=== PATIENT | female | born 1990 | race Caucasian/White ===

== ENCOUNTER 2020-01-14 03:41 | Inpatient (IN) | payer OTHER ==
[2020-01-14] MEDS ORDERED: DEXTROSE 5%-LACTATED RINGERS 500 ML IV ONE (04:00)
[2020-01-14] MEDS ORDERED: DEXTROSE 5%-LACTATED RINGERS 1,000 ML IV SCH (05:00)
[2020-01-14 05:20] VITALS: BMI 28.1
[2020-01-14] MEDS ORDERED: BUTORPHANOL TARTRATE 1 MG/ML VIAL IVPB ONE (05:26)
[2020-01-14] MEDS ORDERED: PROMETHAZINE HCL 25 MG/1 ML VIAL IVPUSH ONE (05:26)
--- NOTE | 2020-01-14 05:32 | HP ---
Past Medical History - Primary Care Physician PCP:: Arielle Major - Admission Chief Complaint: spontaneous rupture of membranes. 40.5 week History of Present Illness: 29 yo G1 EDC EGA 40.5 week for spontaneous rupture of membranes no vaginal bleeding No CH no BP problem History Source: Patient - Past Medical History ...: 1 ...Para: 0 ...Term: 0 ...: 0 ...Spon : 0 ...Induced : 0 ...Multiple Gestation: 0 ... Weeks Gestation by Dates: 40.5 ...EDC by Dates: 01/09/20 - Past Surgical History Past Surgical History: Yes: None Hx Myomectomy: No Hx Transabdominal Cerclage: No - Smoking History Smoking history: Never smoked Have you smoked in the past 12 months: No - Alcohol/Substance Use Hx Alcohol Use: No History of Substance Use: reports: None - Social History Usual Living Arrangement: Yes: With Spouse History of Recent Travel: No Home Medications - Allergies Allergies/Adverse Reactions: Allergies Allergy/AdvReac Type Severity Reaction Status Date / Time No Known Drug Allergies Allergy Verified 01/14/20 05:35 - Home Medications Home Medications: Ambulatory Orders Ferrous Sulfate 325 mg PO TID 01/13/20 Review of Systems - Review of Systems Constitutional: reports: No Symptoms Eyes: reports: No Symptoms HENT: reports: No Symptoms Neck: reports: No Symptoms Cardiovascular: reports: No Symptoms Respiratory: reports: No Symptoms Gastrointestinal: reports: Abdominal Pain Genitourinary: reports: No Symptoms Breasts: reports: No Symptoms Reported Musculoskeletal: reports: No Symptoms Integumentary: reports: No Symptoms Neurological: reports: No Symptoms Endocrine: reports: No Symptoms Hematology/Lymphatic: reports: No Symptoms Psychiatric: reports: No Symptoms Physical Exam - Maternity Vital Signs: Vital Signs Temperature 98.1 F 01/14/20 05:00 Pulse Rate 80 01/14/20 05:00 Respiratory Rate 20 01/14/20 05:00 Blood Pressure 114/67 01/14/20 05:00 O2 Sat by Pulse Oximetry (%) Hemorrhage Risk Assessment - Risk Factors Risk Score: 0 Risk Level: Low Risk Problem List - Problems (1) Spontaneous rupture of amniotic membranes Problems reviewed: Yes Code(s): KTQ7801 - (2) 40 weeks gestation of Problems reviewed: Yes Code(s): Z3A.40 - 40 WEEKS GESTATION OF Assessment/Plan srom 40 weeks Cat 1 Plan admit
[2020-01-14] MEDS: ELECTROLYTE-148 SOLN 1,000 ML IV SCH ×3 (06:30→11:57)
[2020-01-14] MEDS ORDERED: FENTANYL/BUPIVACAINE/NS/PF - PCEA - 50 ML DISP.SYRIN EP ONE ×2 (06:36→11:38)
[2020-01-14] MEDS ORDERED: NALOXONE HCL 0.4 MG/ML VIAL IVPUSH PRN (06:48)
[2020-01-14] MEDS: FENTANYL/BUPIVACAINE/NS/PF - PCEA - 50 ML DISP.SYRIN EP SCH ×2 (07:00→11:58)
--- NOTE | 2020-01-14 07:21 | PN ---
Ante-Partal Exam - Subjective Subjective: Pt comfortable after epidural Vital Signs: Vital Signs Temperature 98.5 F 01/14/20 06:00 Pulse Rate 87 01/14/20 06:00 Respiratory Rate 20 01/14/20 06:00 Blood Pressure 120/76 01/14/20 06:00 O2 Sat by Pulse Oximetry (%) Bleeding: No Headache: No Visual changes: No Right upper quadrant pain: No - Contractions Contractions: Yes Regularity: Regular Intensity: Mild/Mod Monitor Mode: External - Exam during Labor Variability: Moderate Heart Rate Location: [facility] Category: I Monitor Accelerations: Present Monitor Decelerations: None Exam: Vaginal Dilatation (cm): 2 Effacement (%): 80 Amniotic Membrane Status: Ruptured Amniotic Fluid: Clear Presentation: Vertex Station: 0 - Intrapartum Hemorrhage Risk High Risk Factors: None Risk Score: 0 Risk Level: Low Risk - Assessment/Plan Assessment/Plan: Cat 1 SROM active labor stiff cervix - was able to open to 2 cm last exam Plan COntinue management epidural
[2020-01-14] MEDS ORDERED: OXYTOCIN 30 UNITS in 0.9% NS 30 UNIT/500 ML INFUS.BAG IVPB ONE (09:19)
[2020-01-14] MEDS ORDERED: OXYTOCIN 30 UNITS in 0.9% NS 30 UNIT/500 ML INFUS.BAG IVPB SCH (09:30)
[2020-01-14 12:12] LABS: POC NITRAZINE POS
--- NOTE | 2020-01-14 13:36 | PN ---
Ante-Partal Exam - Subjective Subjective: Pt crying and concerned about needing a CS Vital Signs: Vital Signs Temperature 98.2 F 01/14/20 13:00 Pulse Rate 105 H 01/14/20 12:45 Respiratory Rate 01/14/20 12:45 Blood Pressure 124/69 01/14/20 12:45 O2 Sat by Pulse Oximetry (%) 99 01/14/20 12:45 Bleeding: No Headache: No Visual changes: No Right upper quadrant pain: No - Contractions Contractions: Yes Regularity: Regular - Exam during Labor Category: I Monitor Accelerations: Present Monitor Decelerations: None Exam: Vaginal Dilatation (cm): 2 Effacement (%): 70 Amniotic Membrane Status: Ruptured Presentation: Vertex Station: +1 - Intrapartum Hemorrhage Risk Risk Score: 0 Risk Level: Low Risk - Assessment/Plan Assessment/Plan: Failure to dilate - pt has not changed in 12 hours/explained to pt mother and about possibility of infection and distress if no dilation pt and agree to CS SROM Cat 1 Primigravida Plan low transverse Section
[2020-01-14] MEDS ORDERED: METHYLERGONOVINE MALEATE 0.2 MG/1 ML AMP IM PRN (13:38)
[2020-01-14] MEDS ORDERED: OXYTOCIN 20 UNITS in 0.9% NS 20 UNIT/1,000 ML INFUS.BAG IV ONE ×2 (13:41→13:48)
--- NOTE | 2020-01-14 13:42 | OP ---
Operative Note - Note: Operative Date: 01/14/20 Pre-Operative Diagnosis: Failure to progress/dilate. 40+ weeks Operation: Primary low transverse Section Findings: Live female infant nuchal cord x 1 Post-Operative Diagnosis: Same as Pre-op Surgeon: Arielle Major Psychologist Research Assistant: Benedicto Heath Anesthesia: Epidural Estimated Blood Loss (mls): 600 Operative Report Dictated: Yes
[2020-01-14] MEDS ORDERED: PHENYLEPHRINE HCL 10 MG/1 ML SINGLE DOSE VIAL ONE (13:52)
[2020-01-14] MEDS ORDERED: ceFAZolin SODIUM 1 GM VIAL ONE (13:52)
[2020-01-14] MEDS ORDERED: SODIUM CHLORIDE 0.9% P/F 10 ML VIAL IJ ONE (13:53)
[2020-01-14] MEDS ORDERED: KETOROLAC TROMETHAMINE 30 MG/1 ML VIAL ONE (14:31)
[2020-01-14] MEDS ORDERED: BETAMET ACET/BETAMET NA PH 30 MG/5 ML VIAL ONE (14:31)
--- NOTE | 2020-01-14 14:33 | PN ---
Progress Note (short form) - Note Progress Note: I assisted Dr. Major at c/section for the entirety of the case.
--- NOTE | 2020-01-14 14:43 | PN ---
Delivery - Delivery Section: Primary, Low Flap Transverse Type of Anesthesia: Epidural EBL (cc): 500 Delivery, Single - Stages of Labor Placenta: Yes: Spontaneous - Condition of Infant Advertising Rep/Supervisor [place] Present: Yes Position: OT - Feeding Plan Initial Plan: Elected not to breastfeed exclusively throughout hospitalization
[2020-01-14] MEDS ORDERED: ONDANSETRON 4 MG/2 ML VIAL IVPUSH PRN (14:55)
[2020-01-14] MEDS: OXYTOCIN 20 UNITS in 0.9% NS 20 UNIT/1,000 ML INFUS.BAG IV SCH (16:09)
[2020-01-14] MEDS ORDERED: IBUPROFEN 800 MG/8 ML IJ IVPB PRN (19:57)
--- NOTE | 2020-01-14 19:59 | OP ---
DATE OF OPERATION: 01/14/2020 PREOPERATIVE DIAGNOSIS: Failure to progress and dilate, an intrauterine at 49 weeks. OPERATION: Low-transverse primary section. POSTOPERATIVE DIAGNOSIS: Failure to progress and dilate, an intrauterine at 49 weeks, live female infant, nuchal cord x1. SURGEON: Arielle Major MD FOAM CHARGER: Benedicto Heath MD FINDINGS: Live female delivered in ROT position, nuchal cord x1. PROCEDURE: The patient was taken to the operating room, placed in supine position, prepped and draped in the usual sterile fashion. Timeout was performed in accordance with hospital regulation. A Pfannenstiel skin incision was made with a scalpel. Cautery was then used to go through the layers of abdominal wall to the level of the fascia. Fascia was cut in the midline and cautery was then used to open the fascia in smiling fashion. Kochers then used to bluntly and sharply dissect the rectus muscle of the fascia, muscles split in the midline. Peritoneal cavity was then entered and carried up and downward. Bladder retractors then placed. Vesicouterine reflection was then entered. Bladder was bluntly dissected out of the operative field. Scalpel was then used to make a low transverse uterine incision. The incision was carried upward using bandage scissors. A live female infant was delivered in ROT position, nuchal cord x1 was reduced. Shoulders were delivered without difficulty. Cord was clamped and cut, cord blood obtained. Placenta was manually extracted from the uterus. Uterus exteriorized and cleaned with clean lap pads. Uterine incision then closed using 0 Biosyn suture, first layer in continuous interlocking, second layer imbricating the first layer. Hemostasis was achieved. Uterus, tubes and ovaries noted to be normal. The uterine cavity was then interiorized. Abdominal cavity cleaned with clean lap pads. Peritoneum closed using 0 Biosyn suture. Muscles approximated in midline using 0 Biosyn suture. Fascia was then closed using 0 Vicryl suture in 2 parts. Skin was then closed using 3-0 Vicryl in subcuticular fashion. Wound was washed and dressed. Patient tolerated procedure well. Estimated blood loss 500 mL. ARIELLE MAJOR M.D. [id number]
[2020-01-15] MEDS: OXYTOCIN 20 UNITS in 0.9% NS 20 UNIT/1,000 ML INFUS.BAG IV SCH (02:35)
--- NOTE | 2020-01-15 08:03 | PN ---
Progress Note (SOAP) - Subjective Chief Complaint: Pt doing well - Current Medications Current Medications: Active Medications Acetaminophen (Tylenol -) 650 mg PO Q4H PRN PRN Reason: PAIN LEVEL 4 - 6 Bisacodyl (Dulcolax Suppository -) 10 mg RC PRN PRN PRN Reason: CONSTIPATION Diphenhydramine HCl (Benadryl Injection -) 25 mg IVPUSH Q4H PRN PRN Reason: Pruritis Oxytocin/Sodium Chloride (Normal Saline+20 Units Oxytocin -) 20 unit in 1,000 mls @ 125 mls/hr IV ASDIR GARY Last Admin: 01/15/20 02:35 Dose: 125 mls/hr Ibuprofen (Motrin -) 600 mg PO Q4H PRN PRN Reason: PAIN LEVEL 1 - 3 Ibuprofen (Motrin -) 600 mg PO Q4H PRN PRN Reason: PAIN LEVEL 6-10 Ibuprofen (Caldolor Injection -) 800 mg IVPB Q8H PRN PRN Reason: PAIN SCALE 4-6 Last Admin: 01/14/20 23:15 Dose: 800 mg Methylergonovine Maleate (Methergine Injection -) 0.2 mg IM Q4H PRN PRN Reason: Excessive Bleeding (L&D) Naloxone HCl (Narcan -) 0.4 mg IVPUSH PRN PRN PRN Reason: Sedation Ondansetron HCl (Zofran Injection) 4 mg IVPUSH Q4H PRN PRN Reason: NAUSEA Simethicone (Mylicon -) 80 mg PO Q4H PRN PRN Reason: GAS - Objective Vital Signs: Vital Signs Temperature 97.9 F 01/15/20 05:44 Pulse Rate 75 01/15/20 05:44 Respiratory Rate 18 01/15/20 06:00 Blood Pressure 97/47 L 01/15/20 05:44 O2 Sat by Pulse Oximetry (%) 99 01/14/20 16:00 Constitutional: Yes: Well Nourished, No Distress Gastrointestinal: Yes: WNL, Soft ....Post : Yes: Uterus firm, Uterus non-tender Breast(s): Yes: WNL Musculoskeletal: Yes: WNL Extremities: Yes: WNL Edema: No Wound/Incision: Yes: Steri Strips, Open to air Neurological: Yes: WNL, Alert, Oriented Problem List - Problems (1) Spontaneous rupture of amniotic membranes Code(s): LVN7129 - (2) 40 weeks gestation of Code(s): Z3A.40 - 40 WEEKS GESTATION OF (3) Delivery by section Problems reviewed: Yes Code(s): HAC2167 - Assessment/Plan POD 1 SP CS Stable Plan Continue present management
[2020-01-15 08:22] LABS: BASO % 0.4 % (0-2.0); EOS % 0.2 % (0-4.5); HEMATOCRIT 28.3 % (32.4-45.2); HEMOGLOBIN 9.5 GM/dL (10.7-15.3); LYMPH % 16.8 % (8-40); MCH 30.2 pg (25.7-33.7); MCHC 33.6 g/dl (32.0-36.0); MEAN CELL VOLUME 89.7 fl (80-96); MEAN PLT VOLUME 9.1 fl (7.5-11.1); MONO % 10.5 % (3.8-10.2); NEUT % 72.1 % (42.8-82.8); PLATELET COUNT 243 K/MM3 (134-434); RBC 3.16 M/mm3 (3.60-5.2); RDW 13.4 % (11.6-15.6); WHITE BLOOD COUNT 12.7 K/mm3 (4.0-10.0)
--- NOTE | 2020-01-15 08:30 | PN ---
Progress Note, Physician Chief Complaint: s/p c section post op day one History of Present Illness: under spinal anesthesia with duramorph for pain control - Current Medication List Current Medications: Active Medications Acetaminophen (Tylenol -) 650 mg PO Q4H PRN PRN Reason: PAIN LEVEL 4 - 6 Bisacodyl (Dulcolax Suppository -) 10 mg RC PRN PRN PRN Reason: CONSTIPATION Diphenhydramine HCl (Benadryl Injection -) 25 mg IVPUSH Q4H PRN PRN Reason: Pruritis Oxytocin/Sodium Chloride (Normal Saline+20 Units Oxytocin -) 20 unit in 1,000 mls @ 125 mls/hr IV ASDIR GARY Last Admin: 01/15/20 02:35 Dose: 125 mls/hr Ibuprofen (Motrin -) 600 mg PO Q4H PRN PRN Reason: PAIN LEVEL 1 - 3 Ibuprofen (Motrin -) 600 mg PO Q4H PRN PRN Reason: PAIN LEVEL 6-10 Ibuprofen (Caldolor Injection -) 800 mg IVPB Q8H PRN PRN Reason: PAIN SCALE 4-6 Last Admin: 01/14/20 23:15 Dose: 800 mg Methylergonovine Maleate (Methergine Injection -) 0.2 mg IM Q4H PRN PRN Reason: Excessive Bleeding (L&D) Naloxone HCl (Narcan -) 0.4 mg IVPUSH PRN PRN PRN Reason: Sedation Ondansetron HCl (Zofran Injection) 4 mg IVPUSH Q4H PRN PRN Reason: NAUSEA Simethicone (Mylicon -) 80 mg PO Q4H PRN PRN Reason: GAS - Objective Vital Signs: Vital Signs Temperature 97.9 F 01/15/20 05:44 Pulse Rate 75 01/15/20 05:44 Respiratory Rate 18 01/15/20 06:00 Blood Pressure 97/47 L 01/15/20 05:44 O2 Sat by Pulse Oximetry (%) 99 01/14/20 16:00 Constitutional: Yes: Well Nourished Cardiovascular: Yes: WNL Respiratory: Yes: WNL Gastrointestinal: Yes: WNL Labs: CBC, BMP 01/15/20 07:15 Assessment/Plan doing well, no nausea or vomiting overnight, pain controlled, no anesthetic complications. Dept of anesthesia will sign off care at this time
[2020-01-15] MEDS: SIMETHICONE 80 MG TAB.CHEW (FP) PO PRN ×3 (09:04→20:23)
[2020-01-15] MEDS: IBUPROFEN 600 MG TABLET (FP) PO PRN ×3 (09:04→20:23)
[2020-01-15] MEDS: ACETAMINOPHEN 325 MG TABLET (FP) PO PRN ×3 (09:04→20:24)
[2020-01-15] MEDS ORDERED: BISACODYL 10 MG SUPP.RECT RC PRN (13:39)
[2020-01-16] MEDS: ACETAMINOPHEN 325 MG TABLET (FP) PO PRN ×4 (05:10→22:01)
[2020-01-16] MEDS: IBUPROFEN 600 MG TABLET (FP) PO PRN ×4 (05:10→22:01)
[2020-01-16] MEDS: SIMETHICONE 80 MG TAB.CHEW (FP) PO PRN ×4 (05:10→22:00)
--- NOTE | 2020-01-17 07:07 | DS ---
Physical Exam-PROJECTS MANAGER Vital Signs: Vital Signs Temperature 97.6 F 01/16/20 21:15 Pulse Rate 88 01/16/20 21:15 Respiratory Rate 20 01/16/20 21:15 Blood Pressure 117/61 01/16/20 21:15 O2 Sat by Pulse Oximetry (%) 99 01/14/20 16:00 Constitutional: Yes: Well Nourished, No Distress ....Post : Yes: Uterus firm, Uterus non-tender Breast(s): Yes: WNL Musculoskeletal: Yes: WNL Extremities: Yes: WNL Edema: No Neurological: Yes: WNL, Alert, Oriented Labs: CBC, BMP 01/15/20 07:15 Delivery - Delivery Section: Primary, Low Flap Transverse Type of Anesthesia: Epidural Episiotomy/Laceration: None EBL (cc): 500 Delivery, Single - Stages of Labor Date 1st Stage Initiatied: 01/14/20 Time 1st Stage Initiated: 02:00 Date of Delivery: 01/14/20 Time of Delivery: 14:13 Time Placenta Delivered: 14:20 Placenta: Yes: Spontaneous - Condition of Home Restoration Service Supervisor/Podiatry Doctor Present: Yes Name: Iwona Rdz Gender: Female Weight: 7 lb 5 oz Position: OT Total Hours ROM (Hrs/Mins): 18/20 - 1 Minute Total Score: 9 5 Minutes Total Score: 9 - Boelus Feeding Plan Initial Plan: Elected not to breastfeed exclusively throughout hospitalization Discharge Summary Problems reviewed: Yes Reason For Visit: LABOR ADMIT Current Active Problems Delivery by section (Acute) Spontaneous rupture of amniotic membranes (Acute) Procedures: Principal: Primary Section Hospital Course: unremarkable Condition: Good - Instructions Diet, Activity, Other Instructions: Physical activity Resume your normal everyday activity as tolerated no heavy lifting or exercise until seen by your surgeon. You may walk unlimited conrado of and climb stairs. You may resume driving the car when you feel safe and comfortable behind the wheel. No sexual activity as instructed. Wound care If you have a bandage, leave it on, and keep dry for 48-72 hours. After that time discard the outer bandage. If they are tapes on the skin under the out of bandage leave them in place. They will peel off in the next 7 to 10 days. Do Not Peel them off. You may shower the day after surgery. If there are tapes present on the skin, you may shower over them. Diet There are no dietary restrictions. Eat healthy, high-fiber foods. Drink 6 to 8 glasses of liquid each day. This will assist in keeping your bowels are regular. Pain management You may take Tylenol or acetaminophen or Ibuprofen (for example, Motrin, Advil etc.) from my pain prescription medication is ordered should be taken as prescribed for moderate to severe pain. Call MD for any of the following: Severe pain not relieved by medication Fever of 101 or higher Excessive bleeding or drainage on dressing Inability to urinate Referrals: Arielle Major MD [Staff Physician] - Disposition: HOME - Home Medications Comprehensive Discharge Medication List: Ambulatory Orders Ferrous Sulfate 325 mg PO TID 01/13/20 Ferrous Sulfate [Feosol] 325 mg PO BID #60 tablet 01/16/20 Ibuprofen [Motrin -] 600 mg PO QID #28 tablet 01/16/20
[2020-01-17] MEDS: ACETAMINOPHEN 325 MG TABLET (FP) PO PRN (07:55)
[2020-01-17] MEDS: IBUPROFEN 600 MG TABLET (FP) PO PRN (07:55)
[2020-01-17 08:32] LABS: BASO % 0.6 % (0-2.0); EOS % 3.8 % (0-4.5); HEMATOCRIT 30.1 % (32.4-45.2); HEMOGLOBIN 10.1 GM/dL (10.7-15.3); LYMPH % 22.7 % (8-40); MCH 30.4 pg (25.7-33.7); MCHC 33.6 g/dl (32.0-36.0); MEAN CELL VOLUME 90.2 fl (80-96); MEAN PLT VOLUME 8.6 fl (7.5-11.1); MONO % 7.6 % (3.8-10.2); NEUT % 65.3 % (42.8-82.8); PLATELET COUNT 295 K/MM3 (134-434); RBC 3.34 M/mm3 (3.60-5.2); RDW 13.2 % (11.6-15.6); WHITE BLOOD COUNT 8.1 K/mm3 (4.0-10.0)
[2020-01-17 12:27] VITALS: BP 121/73; PULSE 80; TEMP 97.8
--- NOTE | 2020-01-19 16:43 | PATH ---
Surgical Pathology Report Patient Name: ELDER DOVE Med. Rec. #: [id number] /Age/Gender: 1990 (Age: 29) / F Account: [id number] Location: [facility] OBS/PROJECT ENGINEERING MANAGER Taken: 01/14/2020 Received: 01/15/2020 Reported: 01/19/2020 Physicians: Arielle Major M.D. Specimen(s) Received PLACENTA Clinical History Final Diagnosis PLACENTA, SECTION: 483 G THIRD TRIMESTER PLACENTA WITH TRIVASCULAR UMBILICAL CORD AND UNREMARKABLE PLACENTAL MEMBRANES. Electronically Signed Brigid Zaldivar M.D. Gross Description The specimen is received fresh labeled placenta and is a 483 gram, 18.5 x 15.0 x 2.0 cm. placenta with attached membranes and umbilical cord. The attached membranes are pierce, translucent with focal opacities and insert marginally. The umbilical cord measures 12 cm. in length and averages 1 cm. in diameter. The cord inserts eccentrically, 5.5 cm. to the nearest margin. No true knots or strictures are identified. Cut surface of the umbilical cord reveals 3 vessels. The surface is santos-blue with minimal fibrin deposition and appropriate caliber vessels. The maternal surface is red-brown with focal defects. Sectioning reveals red-brown, spongy parenchyma. No lesions are identified. Air C[employer] Ground Crew Supervisor sections are submitted in three cassettes as follows: 1- membrane rolls and umbilical cord; 2-3- full thickness sections of placenta. /01/16/2020 [facility]01/16/2020
== END 2020-01-17 12:30 | disposition home or self-care (01) | DRG 788 ==
LOC: JLDR 03:41 → J3W 16:35
PROVIDERS: ADMIT Obstetrics & Gynecology; ATTEND Obstetrics & Gynecology
PROC: 10D00Z1 Extraction of Products of Conception, Low, Open Approach (ICD-10-PCS; principal; 2020-01-14)
DX: O62.1 Secondary uterine inertia (principal); O62.0 Primary inadequate contractions; Z3A.40 40 weeks gestation of pregnancy; Z37.0 Single live birth
CPT/HCPCS: 36415; 36600; 82803; 83986-QW; 85025; 88307-TC